=== PATIENT | female | born 1960 ===

== ENCOUNTER 2017-09-01 10:35 | Emergency (ER) | payer MEDICAID ==
[2017-09-01 10:36] VITALS: BMI 38.2
[2017-09-01] MEDS ORDERED: TDAP Vaccine 0.5 mL Syr IM ONE (10:48)
[2017-09-01 10:50] VITALS: RESP 18; TEMP 98.1; O2SAT 100
--- NOTE | 2017-09-01 10:57 | ED PDOC ---
Arrival/HPI - General Historian: Patient - History of Present Illness Time/Duration: Prior to Arrival Symptom Onset: Sudden Symptom Course: Improving Context: Walking - General Chief Complaint: Trauma Time Seen by Provider: 09/01/17 10:39 - History of Present Illness Narrative History of Present Illness (Text): 09/01/17 10:54 Pt is a 57 yo F with PMH of htn, hypercholestremia, dm, hypothyroidism, and rheumatoid arthritis presents to the ED due to fall in front of the hospital. Patient states that she was walking up to hospital for testing and lost her balance. Patient denies any symptoms leading up to the fall including dizziness , MARIANO, LOC, or fatigue. Patient states that she hit her head, left knee, and left toes as she fell. Patient denies CP, SOB, n/v/d, abdominal pain, fever, chills, MARIANO or dizziness. PMD: Horace Gaston) Past Medical History - Provider Review Nursing Documentation Reviewed: Yes - Infectious Disease Hx of Infectious Diseases: None - Cardiac Hx Hypertension: Yes - Endocrine/Metabolic Hx Endocrine Disorders: Yes Hx Diabetes Mellitus Type 2: Yes Hx Hypothyroidism: Yes - Musculoskeletal/Rheumatological Hx Musculoskeletal Disorders: Yes Hx Rheumatoid Arthritis: Yes - Psychiatric Hx Depression: Yes Hx Emotional Abuse: No Hx Physical Abuse: No Hx Substance Use: No - Surgical History Hx Section: Yes - Anesthesia Hx Anesthesia: Yes Hx Anesthesia Reactions: No Hx Malignant Hyperthermia: No - Suicidal Assessment Feels Threatened In Home Enviroment: No Family/Social History - Physician Review Nursing Documentation Reviewed: Yes Family/Social History: No Known Family HX Smoking Status: Never Smoked Hx Alcohol Use: No Hx Substance Use: No Hx Substance Use Treatment: No Allergies/Home Meds Allergies/Adverse Reactions: Allergies Penicillins Allergy (Verified 02/10/16 16:34) RASH Home Medications: Home Meds Medication Instructions Recorded Confirmed Lisinopril [Zestril] 20 mg PO DAILY 05/05/15 03/16/16 Celecoxib [CeleBREX] 200 mg PO DAILY 03/16/16 03/16/16 Folic Acid 1 mg PO DAILY 03/16/16 03/16/16 Levothyroxine Sodium [Tirosint] 25 mcg PO DAILY 03/16/16 03/16/16 Methotrexate 2.5 mg PO QWK 03/16/16 03/16/16 Omeprazole 40 mg PO DAILY 03/16/16 03/16/16 metFORMIN [glucOPHAGE] 500 mg PO BID 03/16/16 03/16/16 Review of Systems - Physician Review All systems were reviewed & negative as marked: Yes - Review of Systems Constitutional: Normal Eyes: Normal ENT: Normal Respiratory: Normal Cardiovascular: Normal Gastrointestinal: Normal Genitourinary Female: Normal Musculoskeletal: Normal Skin: Skin Lesions (forehead, left knee, left toes) Neurological: Headache Endocrine: Normal Hemo/Lymphatic: Normal Psychiatric: Normal Physical Exam Vital Signs Reviewed: Yes Temperature: Afebrile Blood Pressure: Normal Pulse: Regular Respiratory Rate: Normal Appearance: Positive for: Non-Toxic Pain Distress: Mild Mental Status: Positive for: Alert and Oriented X 3 - Systems Exam Head: Present: Normocephalic, Abrasion (small abrasion on left side of forehead) Pupils: Present: PERRL Extroacular Muscles: Present: EOMI Conjunctiva: Present: Normal Mouth: Present: Moist Mucous Membranes Neck: Present: Normal Range of Motion Respiratory/Chest: Present: Clear to Auscultation, Good Air Exchange. No: Respiratory Distress, Accessory Muscle Use Cardiovascular: Present: Regular Rate and Rhythm, Normal S1, S2. No: Murmurs Abdomen: No: Tenderness, Distention, Peritoneal Signs Back: Present: Normal Inspection Upper Extremity: Present: Normal Inspection. No: Cyanosis, Edema Lower Extremity: Present: Normal Inspection. No: Edema Neurological: Present: GCS=15, CN II-XII Intact, Speech Normal Skin: Present: Warm, Dry, Normal Color, Abrasion (2-3 cm abrasion left knee, small abrasion on left toes). No: Rashes Psychiatric: Present: Alert, Oriented x 3, Normal Insight, Normal Concentration Vital Signs Temp Pulse Resp BP Pulse Ox 09/01/17 12:42 72 18 120/72 100 09/01/17 10:36 98.1 F 116 H 18 140/80 100 Medical Decision Making ED Course and Treatment: 09/01/17 10:59 57 yo F presents to ED s/p fall. Plan: - Head CT - Left hip, knee, foot xray - Tdap - Reassess and disposition Fall likely mechanical, however syncopal episode not ruled out. This was explained to patient. However, she is currently denying any further labwork. 09/01/17 12:[address] Impression: No acute intracranial hemorrhage. No acute calvarial fractures so far as can be seen however note that the outer table of the superior parietal calvarium has been excluded from the film at the level of the vertex. The subjacent inter table appears intact. Clinical correlation recommended. There are scattered chronic bilateral basal nuclei lacunar type infarcts with minimal chronic periventricular white matter ischemic changes. Partial opacification several ethmoid air cells with subtotal opacification right chamber sphenoid sinus. 09/01/17 12:38 Left Knee X-Ray Impression: Normal radiographs of the left knee. No acute fractures. Left Hip X-Ray Impression: No acute fractures. Very minor degenerative spurring superolateral margins of both acetabular roofs. Left Foot X-Ray Impression: No evidence of acute displaced fracture nor dislocation. Multiarticular degenerative osteoarthritis. Discussed results with patient. Patient feels comfortable ambulating and going home. Patient medically stable for discharge. Patient advised to follow up with her PMD. (Horace Chaudhry) 09/01/17 18:15 pt seen with resident. s/p fall. pt denies syncope. states she "lost her balance ' at baseline previously. imaging neg. advise outpt fu. (Andrea Terry) - RAD Interpretation Radiology Orders: 09/01/17 10:48 HEAD W/O CONTRAST [CT] Stat KNEE LEFT 2 VIEWS (AP & LAT) [RAD] Stat 09/01/17 10:51 FOOT LEFT 3 VIEWS ROUTINE [RAD] Stat HIP MIN 2V W/ PELVIS LT [RAD] Stat - Medication Orders Current Medication Orders: Discontinued Medications Tetanus/Reduced Diphtheria/Acell Pertussis (Boostrix Vaccine Inj) 0.5 ml IM .ONCE ONE Stop: 09/01/17 10:49 Last Admin: 09/01/17 12:28 Dose: 0.5 ml Immunization Registry Document 09/01/17 12:28 EQ (Rec: 09/01/17 12:28 EQ [id number]) Immunization Registry Consent Date 09/01/17 Disposition/Present on Arrival - Present on Arrival Any Indicators Present on Arrival: No History of DVT/PE: No History of Uncontrolled Diabetes: No Urinary Catheter: No History of Decub. Ulcer: No History Surgical Site Infection Following: Orthopedic Procedures - Disposition Have Diagnosis and Disposition been Completed?: Yes Disposition Time: 12:39 Patient Plan: Discharge - Disposition Diagnosis: Fall Disposition: HOME/ ROUTINE Condition: IMPROVED Additional Instructions: 1. Follow up with PMD within 1 week 2. Take home medications as prescribed 3. Return to ED if symptoms worsen KERRY GUTIERREZ, thank you for letting us take care of you today. Your provider was Andrea Terry DO and you were treated for CODE STAR/KNEE/FACE PAIN. The emergency medical care you received today was directed at your acute symptoms. If you were prescribed any medication, please fill it and take as directed. It may take several days for your symptoms to resolve. Return to the Emergency Department if your symptoms worsen, do not improve, or if you have any other problems. Please contact your doctor or call one of the physicians/clinics you have been referred to that are listed on the Patient Visit Information form that is included in your discharge packet. Bring any paperwork you were given at discharge with you along with any medications you are taking to your follow up visit. Our treatment cannot replace ongoing medical care by a primary care provider outside of the emergency department. Thank you for allowing the [facility] team to be part of your care today. Referrals: Kelechi Morfin MD [Primary Care Provider] - Follow up with primary Forms: [employer] (Chinese)
--- NOTE | 2017-09-01 12:00 | CT ---
PROCEDURE: CT HEAD WITHOUT CONTRAST. HISTORY: Status post fall COMPARISON: Comparison made with prior CT scan brain 01/29/2013 TECHNIQUE: Axial computed tomography images were obtained through the head/brain without intravenous contrast. Radiation dose: Total exam DLP = 873.41 mGy-cm. This CT exam was performed using one or more of the following dose reduction techniques: Automated exposure control, adjustment of the mA and/or kV according to patient size, and/or use of iterative reconstruction technique. . FINDINGS: HEMORRHAGE: No acute parenchymal, subarachnoid nor extra-axial hemorrhage. BRAIN: There are a few scattered chronic bilateral basal nuclei lacunar type infarcts with suspected minor chronic periventricular white matter ischemic changes. Partially empty sella. Ventricular and sulcal size are within range of normal for this patient's stated age. VENTRICLES: No obstructive hydrocephalus. CALVARIUM: No evidence of acute calvarial fractures however note that a very tiny amount of the outer table of the parietal bone at the convexity has been excluded from the study due to slice placement. The subjacent inner table appears intact Clinical correlation with physical exam recommended PARANASAL SINUSES: There is partial opacification of several MASTOID AIR CELLS: Opacification of several ethmoid air cells and subtotal opacification of the right chamber sphenoid sinus. OTHER FINDINGS: Orbits and contents unremarkable IMPRESSION: No acute intracranial hemorrhage. No acute calvarial fractures so far as can be seen however note that that the outer table of the superior parietal calvarium has been excluded from the film at the level of the vertex. . The subjacent inter table appears intact Clinical correlation recommended. There are scattered chronic bilateral basal nuclei lacunar type infarcts with minimal chronic periventricular white matter ischemic changes. Partial opacification several bilateral inferior mastoid air cells. . Opacification several ethmoid air cells with subtotal opacification right chamber sphenoid sinus.
[2017-09-01 12:42] VITALS: BP 120/72; PULSE 72
--- NOTE | 2017-09-01 13:13 | RAD ---
PROCEDURE: Left Knee Radiographs. HISTORY: Pain. COMPARISON: Correlation made with concurrent radiographs of the left hip. . FINDINGS: BONES: No evidence of acute displaced fracture nor dislocation. The osseous structures appear intact. JOINTS: Joint spaces preserved. No significant osteoarthritis. JOINT EFFUSION: No significant joint effusion OTHER FINDINGS: Mild vascular calcifications are felt be present IMPRESSION: Normal radiographs of the left knee. No acute fractures.
--- NOTE | 2017-09-01 13:14 | RAD ---
PROCEDURE: Left Hip X-ray Radiographs. HISTORY: fall COMPARISON: None. FINDINGS: BONES: No evidence of acute displaced fracture nor dislocation. The osseous structures intact. JOINTS: Both femoral heads appropriately located within the respective acetabula. Minimal spurring along the superolateral margins of both acetabular roofs. Mild degenerative spondylosis of the lower lumbosacral spine SOFT TISSUES: Mild vascular calcifications are present. OTHER FINDINGS: None. IMPRESSION: No acute fractures. Very minor degenerative spurring superolateral margins of both acetabular roofs.
--- NOTE | 2017-09-01 13:22 | RAD ---
PROCEDURE: Left Foot Radiographs. HISTORY: Fall. COMPARISON: None. FINDINGS: BONES: No evidence of acute displaced fracture nor dislocation. The osseous structures appear intact. . Small to medium-sized posterior and smaller plantar calcaneal enthesophyte formation. JOINTS: Multi articular degenerative osteoarthritis. . There is mild extension deformities and very slight lateral subluxation of the 3rd and 4th digits and less of the 2nd digit. Mild hallux valgus deformity with overgrowth of the head of 1st metatarsal and mild DJD 1st incomplete joint. . Mild degenerative changes bones of the midfoot also seen SOFT TISSUES: No radiopaque foreign bodies. OTHER FINDINGS: None. IMPRESSION: No evidence of acute displaced fracture nor dislocation. Multi articular degenerative osteoarthritis Mild
== END 2017-09-01 12:42 | disposition home or self-care (01) ==
LOC: ED 10:35
DX: Z04.3 Encounter for examination and observation following other accident (principal); W01.0XXA Fall on same level from slipping, tripping and stumbling without subsequent striking against object, initial encounter; Y92.89 Other specified places as the place of occurrence of the external cause; Z23 Encounter for immunization

== ENCOUNTER 2017-09-10 19:19 | Emergency (ER) | payer MEDICAID ==
[2017-09-10 19:19] VITALS: BMI 38.2
[2017-09-10 19:35] VITALS: TEMP 99.3
--- NOTE | 2017-09-10 19:36 | ED PDOC ---
Arrival/HPI - General Time Seen by Provider: 09/10/17 19:29 Historian: Patient - History of Present Illness Narrative History of Present Illness (Text): 09/10/17 19:30 57 year old female, whose PMH includes hypertension, borderline diabetes, and hypothyroidism, who presents to the emergency department complaining of severe left knee pain that radiates down leg since 1 week s/p mechanical fall. Patient reports one week ago she fell landing on her left knee and was brought in to the emergency department where an x-ray was done and found negative results. patient reports since then the pain has become worse and she cannot move or bend her knee. Patient denies to having another fall, fever, shortness of breath , chest pain, abdominal, or other complaints. PMD: Dr. Kelechi Morfin Time/Duration: 1 week Symptom Onset: Gradual Symptom Course: Worsening Context: Tripped Past Medical History - Provider Review Nursing Documentation Reviewed: Yes - Infectious Disease Hx of Infectious Diseases: None - Cardiac Hx Hypertension: Yes - Endocrine/Metabolic Hx Endocrine Disorders: Yes Hx Diabetes Mellitus Type 2: Yes Hx Hypothyroidism: Yes - Musculoskeletal/Rheumatological Hx Musculoskeletal Disorders: Yes Hx Rheumatoid Arthritis: Yes - Psychiatric Hx Depression: Yes Hx Emotional Abuse: No Hx Physical Abuse: No Hx Substance Use: No - Surgical History Hx Section: Yes - Anesthesia Hx Anesthesia: Yes Hx Anesthesia Reactions: No Hx Malignant Hyperthermia: No - Suicidal Assessment Feels Threatened In Home Enviroment: No Family/Social History - Physician Review Nursing Documentation Reviewed: Yes Family/Social History: Unknown Family HX Smoking Status: Never Smoked Hx Alcohol Use: No Hx Substance Use: No Hx Substance Use Treatment: No Allergies/Home Meds Allergies/Adverse Reactions: Allergies Penicillins Allergy (Verified 09/10/17 19:35) RASH Home Medications: Home Meds Medication Instructions Recorded Confirmed Lisinopril [Zestril] 20 mg PO DAILY 05/05/15 09/10/17 Celecoxib [CeleBREX] 200 mg PO DAILY 03/16/16 09/10/17 Folic Acid 1 mg PO DAILY 03/16/16 09/10/17 Levothyroxine Sodium [Tirosint] 25 mcg PO DAILY 03/16/16 09/10/17 Methotrexate 2.5 mg PO QWK 03/16/16 09/10/17 Omeprazole 40 mg PO DAILY 03/16/16 09/10/17 metFORMIN [glucOPHAGE] 500 mg PO BID 03/16/16 09/10/17 Review of Systems - Review of Systems Constitutional: absent: Fevers Respiratory: absent: SOB Cardiovascular: absent: Chest Pain Gastrointestinal: absent: Abdominal Pain Genitourinary Female: absent: Dysuria Musculoskeletal: Other (left knee pain radiates down leg ) Neurological: absent: Headache Endocrine: absent: Diaphoresis Physical Exam Vital Signs Reviewed: Yes Vital Signs Temp Pulse Resp BP Pulse Ox 09/10/17 21:45 80 18 144/89 100 09/10/17 19:31 99.3 F 85 19 151/99 H 98 09/10/17 19:27 98.4 F 86 18 154/113 H 98 Temperature: Afebrile Blood Pressure: Hypertensive Pulse: Regular Respiratory Rate: Normal Appearance: Positive for: Well-Appearing, Non-Toxic, Comfortable Pain Distress: None Mental Status: Positive for: Alert and Oriented X 3 - Systems Exam Head: Present: Atraumatic, Normocephalic Pupils: Present: PERRL Extroacular Muscles: Present: EOMI Conjunctiva: Present: Normal Lower Extremity: Present: Tenderness (diffused tenderness anterior and posterior to the knee), Swelling (mild swelling), Erythema, Neurovascularly Intact, Other (abrasion on the left knee ; no evidene of compartment syndrome). No: Edema, Normal ROM (limited left ROM ) Neurological: Present: GCS=15, CN II-XII Intact, Speech Normal, Motor Func Grossly Intact, Normal Sensory Function Skin: Present: Warm, Dry, Normal Color. No: Rashes Psychiatric: Present: Alert, Oriented x 3, Normal Insight, Normal Concentration Medical Decision Making ED Course and Treatment: 09/10/17 Impression: 57 year old female with left leg pain, especially knee s/p fall Differential Diagnosis included but are not limited to: r/o Fracture Plan: -- Pain control -- Xrays reviewed from last visit and were negative. CT of lower left leg ordered Progress Notes: 09/10/17 20:51 CT Left Lower Extremity Without Intravenous Contrast, Knee COMPARISON: DX - KNEE LEFT 2 VIEWS (AP LAT) 2017-09-01 11:44 FINDINGS: Bones/joints: Unremarkable. No acute fracture. No dislocation. Soft tissues: There is soft tissue swelling noted Other findings: No acute findings. IMPRESSION: No acute findings Patient's pain was controlled with Tramadol and Percocet. She was given Rx Tramadol for home. She was placed in a knee immobilizer and given crutches with instructions. She was referred to Orthopedics Dr. Parra but she states she has one already. She will f/u with Dr. Morfin. She was advised to return to the ED if symptoms worsen or any other concern. - RAD Interpretation Radiology Orders: 09/10/17 19:48 EXT LOWER W/O CONTRAST LEFT [CT] Stat - Medication Orders Current Medication Orders: Discontinued Medications Ketorolac Tromethamine (Toradol) 30 mg IM STAT STA Stop: 09/10/17 20:56 Last Admin: 09/10/17 21:01 Dose: 30 mg MAR Pain Assessment Document 09/10/17 21:01 DEBORAH (Rec: 09/10/17 21:02 [id number]) Pain Reassessment Is this a pain reassessment? Yes Presence of Pain Presence of Pain Yes Pain Scale Used Pain Scale Used Numeric Location Left, Right or Bilateral Left Upper or Lower Lower Pain Location Body Site Leg Description Intensity of Pain at present 10 IM Administration Charges Document 09/10/17 21:01 DEBORAH (Rec: 09/10/17 21:02 [id number]) Injection Site MAR Injection Site Left Deltoid Charges for Administration # of IM Administrations 1 Oxycodone/Acetaminophen (Percocet 5/325 Mg Tab) 1 tab PO STAT STA Stop: 09/10/17 21:25 Last Admin: 09/10/17 21:33 Dose: 1 tab MAR Pain Assessment Document 09/10/17 21:33 AD (Rec: 09/10/17 21:34 [id number] Pain Reassessment Is this a pain reassessment? No Description Intensity of Pain at present 8 Tramadol HCl (Ultram) 50 mg PO STAT STA Stop: 09/10/17 20:04 Last Admin: 09/10/17 20:24 Dose: 50 mg MAR Pain Assessment Document 09/10/17 20:24 DEBORAH (Rec: 09/10/17 20:24 [id number]) Pain Reassessment Is this a pain reassessment? Yes Pain Scale Used Pain Scale Used Numeric Location Left, Right or Bilateral Left Upper or Lower Lower Pain Location Body Site Leg Description Intensity of Pain at present 10 - Scribe Statement The provider has reviewed the documentation as recorded by the Jarocho Bai Provider Scribe Attestation: All medical record entries made by the Jarocho were at my direction and personally dictated by me. I have reviewed the chart and agree that the record accurately reflects my personal performance of the history, physical exam, medical decision making, and the department course for this patient. I have also personally directed, reviewed, and agree with the discharge instructions and disposition. Disposition/Present on Arrival - Present on Arrival Any Indicators Present on Arrival: No History of DVT/PE: No History of Uncontrolled Diabetes: No Urinary Catheter: No History Surgical Site Infection Following: Orthopedic Procedures - Disposition Have Diagnosis and Disposition been Completed?: Yes Diagnosis: Knee contusion, Knee sprain Disposition: HOME/ ROUTINE Disposition Time: 21:45 Patient Plan: Discharge Condition: IMPROVED Discharge Instructions (ExitCare): Knee Sprain (DC), Knee Pain Additional Instructions: KERRY GUTIERREZ, thank you for letting us take care of you today. Your provider was Quan Vega DO and you were treated for LT LEG PAIN. The emergency medical care you received today was directed at your acute symptoms. If you were prescribed any medication, please fill it and take as directed. It may take several days for your symptoms to resolve. Return to the Emergency Department if your symptoms worsen, do not improve, or if you have any other problems. Please contact your doctor or call one of the physicians/clinics you have been referred to that are listed on the Patient Visit Information form that is included in your discharge packet. Bring any paperwork you were given at discharge with you along with any medications you are taking to your follow up visit. Our treatment cannot replace ongoing medical care by a primary care provider outside of the emergency department. Thank you for allowing the [facility] team to be part of your care today. If you had an X-Ray or CT scan: A Radiologist will review the ED reading if any change in treatment is needed we will contact you. If you had a blood, urine, or wound culture: It will take several days for the results, if any change in treatment is needed we will contact you. If you had an STI test: It will take 48 hours for the results. Please call after 1 week if you have not heard back. Prescriptions: traMADol [Ultram] 50 mg PO Q6H PRN #20 tab PRN Reason: Pain, Moderate (4-7) Referrals: Jeremy Pak III, MD [Medical Doctor] - Follow up with primary Kelechi Morfin MD [Staff Provider] - Follow up with primary Forms: [employer] ([place]), WORK NOTE
[2017-09-10] MEDS ORDERED: Oxycodone/Acetaminophen 5/325 mg Tab PO STA (21:24)
[2017-09-10 22:04] VITALS: BP 144/89; PULSE 80; RESP 18; O2SAT 100
--- NOTE | 2017-09-11 08:30 | CT ---
PROCEDURE: HISTORY: L knee/lower leg pain s/p trauma r/o fracture COMPARISON: None TECHNIQUE: FINDINGS: There is no fracture dislocation. The soft tissues are unremarkable. IMPRESSION: Normal exam.
== END 2017-09-10 21:45 | disposition home or self-care (01) ==
LOC: ED 19:19
DX: S80.02XA Contusion of left knee, initial encounter (principal); S83.92XA Sprain of unspecified site of left knee, initial encounter; W19.XXXA Unspecified fall, initial encounter; I10 Essential (primary) hypertension; R73.03 Prediabetes; M06.9 Rheumatoid arthritis, unspecified; E03.9 Hypothyroidism, unspecified
CPT/HCPCS: 73700; 96372; 99283; J1885

== ENCOUNTER 2017-11-15 12:48 | Day surgery (SDC) | payer MEDICAID ==
[2017-11-14 13:38] VITALS: BMI 28.3
[2017-11-15 13:41] LABS: EOS # 0.1 (0.0-0.7); EOS % 0.9 % (1.5-5.0); GRAN # 6.1 (1.4-6.5); GRAN % 76.9 % (50.0-68.0); HEMOGLOBIN 11.8 g/dL (12.0-16.0); LYMPH # 1.1 (1.2-3.4); MEAN CELL VOLUME 84.6 fl (80.0-105.0); MEAN CORPUSCULAR HEMOGLOBIN 27.1 pg (25.0-35.0); MEAN CORPUSCULAR HGB CONC 32.1 g/dl (31.0-37.0); MEAN PLATELET VOLUME 10.9 fl (7.0-11.0); MONO # 0.7 (0.1-0.6); MONO % 8.2 % (1.0-6.0); RBC 4.35 10^6/uL (3.5-6.1); RED CELL DISTRIBUTION WIDTH 20.7 % (11.5-14.5); WHITE BLOOD COUNT 7.9 10^3/ul (4.5-11.0)
[2017-11-15 13:47] LABS: BLOOD UREA NITROGEN 39 mg/dL (7-21); CALCIUM 9.4 mg/dL (8.4-10.5); GFR NON-AFRICAN AMERICAN > 60
[2017-11-15 14:05] LABS: INR 0.9; PARTIAL THROMBOPLASTIN TIME 27.8 Seconds (25.1-36.5); PROTHROMBIN TIME 10.2 SECONDS (9.4-12.5)
[2017-11-15] MEDS ORDERED: Lidocaine 1% Inj (20ml) ONE (14:57)
[2017-11-15] MEDS ORDERED: Midazolam 2 MG/2 ML VIAL ONE (14:58)
[2017-11-15] MEDS ORDERED: Midazolam 2 MG/2 ML VIAL IVP ONE (15:35)
[2017-11-15] MEDS ORDERED: Oxycodone/Acetaminophen 5/325 mg Tab PO PRN (15:46)
[2017-11-15] MEDS ORDERED: Sodium Chloride 0.45% 1,000 ML IV SCH (16:00)
[2017-11-15 16:57] VITALS: TEMP 97.9; O2SAT 96
[2017-11-15 17:33] VITALS: BP 110/74; PULSE 74; RESP 18
--- NOTE | 2017-11-15 19:15 | CT ---
PROCEDURE: CT guided liver biopsy. HISTORY: Abnormal liver function tests. Sarcoidosis. Rheumatoid arthritis. PHYSICIAN(S): Ghanshyam Zuleta MD. TECHNIQUE: The relative risks and indications of the procedure were explained to the patient and consent obtained. The patient was placed supine on the CT scanner and preliminary images through the liver obtained. Conscious sedation and monitoring were provided throughout the procedure by a nurse. The visualized portions of the liver are normal on the non contrast images. A subxyphoid approach was selected and the area prepped and draped in the usual sterile fashion. 1% Xylocaine was used to anesthetize the skin and soft tissues. A 17-gauge guiding needle was advanced into the lateral segment of the left lobe of the liver. Its position was confirmed with CT. Using coaxial technique, multiple core biopsies were obtained. The postprocedure images show no evidence of significant hemorrhage. IMPRESSION: 1. CT-guided liver biopsy as described above.
== END 2017-11-15 17:30 | disposition home or self-care (01) ==
LOC: SDS 12:48
PROVIDERS: ATTEND Radiology Vascular & Interventional Radiology
DX: R94.5 Abnormal results of liver function studies (principal); I10 Essential (primary) hypertension; E11.9 Type 2 diabetes mellitus without complications; E66.9 Obesity, unspecified; Z68.28 Body mass index [BMI] 28.0-28.9, adult; D86.9 Sarcoidosis, unspecified; M06.9 Rheumatoid arthritis, unspecified; M32.9 Systemic lupus erythematosus, unspecified
CPT/HCPCS: 36415; 47000; 77012; 80048; 85025; 85610; 85730; 88307; 99152; J2250; J2405; J3010; J7030